=== PATIENT | female | born 1985 | race American Indian/Alaskan Native ===

== ENCOUNTER 2019-11-30 13:32 | Emergency (ER) | payer SELFPAY ==
[2019-11-30] MEDS ORDERED: ASPIRIN 325 MG TAB PO ONE (13:53)
--- NOTE | 2019-11-30 13:55 | Emergency Department Report ---
ED Neuro Deficit HPI - General Chief Complaint: Altered Mental Status Stated Complaint: CODE STROKE Time Seen by Provider: 11/30/19 13:33 - History of Present Illness Initial Comments: [facility]urology [facility] Date of Service: 11/30/2019 13:14:43 Impression: Rule Out Acute Ischemic Stroke AMS versus aphasia not clear Comments/Sign-Out: THe patient developed AMS about 30 min prior to arrival that has improved. She felt like she couldn't get her words out however suspect more AMS per families description but cannot exclude tia. Ddx AMS/toxic metabolic/seizure, tia. Would start aspirin for now get toxic metabolic workup. Consider stroke/seizure workup if no obvious cause for her altered mentation found. Metrics: Last Known Well: 11/30/2019 13:00:00 [employer] Notification Time: 11/30/2019 13:13:16 Arrival Time: 11/30/2019 13:32:00 Stamp Time: 11/30/2019 13:14:43 Time First Login Attempt: 11/30/2019 13:20:24 Video Start Time: 11/30/2019 13:20:24 Symptoms: AMS NIHSS Start Assessment Time: 11/30/2019 13:45:00 Patient is not a candidate for tPA. Patient was not deemed candidate for tPA thrombolytics because of Resolved symptoms (no residual disabling symptoms). Video End Time: 11/30/2019 13:54:12 CT head showed no acute hemorrhage or acute core infarct. Clinical Presentation is not Suggestive of Large Vessel Occlusive Disease Radiologist was not called back for review of advanced imaging because na ED Physician notified of diagnostic impression and management plan on 11/30/2019 13:54:13 Our recommendations are outlined below. Recommendations: Activate Stroke Protocol Admission/Order Set Stroke/Telemetry Floor Neuro Checks Bedside Swallow Eval DVT Prophylaxis IV Fluids, Normal Saline Head of Bed 30 Degrees Euglycemia and Avoid Hyperthermia (PRN Acetaminophen) Initiate Aspirin 325 MG Daily Routine Consultation with Inhouse Neurology for Follow up Care Sign Out: Discussed with Emergency Department Provider History of Present Illness: Patient is a 33 year old Female. Patient was brought by EMS for symptoms of AMS She was on the phone then became disoriented never happened before has DM, HTN, ESRD, BG 175, BP 179/107. Her family say they asked her some questions and she gave inappropriate confused answers but she was able to speak not really making word errors. The patient her self says she felt she couldnt get her words out no other weakness numbness or tingling. No VITAL or CP. Feels better now Examination: 1A: Level of Consciousness - Alert; keenly responsive + 0 1B: Ask Month and Age - Both Questions Right + 0 1C: Blink Eyes & Squeeze Hands - Performs Both Tasks + 0 2: Test Horizontal Extraocular Movements - Normal + 0 3: Test Visual Ruiz - No Visual Loss + 0 4: Test Facial Palsy (Use Grimace if Obtunded) - Normal symmetry + 0 5A: Test Left Arm Motor Drift - No Drift for 10 Seconds + 0 5B: Test Right Arm Motor Drift - No Drift for 10 Seconds + 0 6A: Test Left Leg Motor Drift - No Drift for 5 Seconds + 0 6B: Test Right Leg Motor Drift - No Drift for 5 Seconds + 0 7: Test Limb Ataxia (FNF/Heel-Tatum) - No Ataxia + 0 8: Test Sensation - Normal; No sensory loss + 0 9: Test Language/Aphasia - Normal; No aphasia + 0 10: Test Dysarthria - Normal + 0 11: Test Extinction/Inattention - No abnormality + 0 NIHSS Score: 0 Patient/Family was informed the Neurology Consult would happen via TeleHealth consult by way of interactive audio and video telecommunications and consented to receiving care in this manner. Due to the immediate potential for life-threatening deterioration due to underlying acute neurologic illness, I spent 35 minutes providing critical care. This time includes time for face to face visit via telemedicine, review of medical records, imaging studies and discussion of findings with providers, the patient and/or family. Dr Olive Lopez [facility] - Related Data Allergies/Adverse Reactions: Allergies Allergy/AdvReac Type Severity Reaction Status Date / Time ciprofloxacin [From Cipro] Allergy Hives Verified 11/30/19 13:35 ED Review of Systems ROS: Stated complaint: CODE STROKE Other details as noted in HPI ED Neuro Physical Exam - General Suspected Stroke: No Critical care attestation.: If time is entered above; I have spent that time in minutes in the direct care of this critically ill patient, excluding procedure time. ED Disposition Clinical Impression: Altered mental status Qualifiers: Altered mental status type: disorientation Qualified Code(s): R41.0 - Disorientation, unspecified Disposition: DC-09 OP ADMIT IP TO THIS HOSP Is pt being admited?: Yes Condition: Stable
--- NOTE | 2019-11-30 14:04 | Cat Scan Report ---
CT head/brain wo con INDICATION / CLINICAL INFORMATION: 33 years Female; MAIN: CODE STROKEneuro deficits <6hrs or sx present upon awakening UNABLE TO REMOVE EARRINGS #[id number]. Temporary aphasia TECHNIQUE: Routine CT head without contrast. All CT scans at this location are performed using CT dos e reduction for ALARA by means of automated exposure control. COMPARISON: None. FINDINGS: BRAIN / INTRACRANIAL CONTENTS: No acute hemorrhage, mass effect, midline shift, hydrocephalus, or acu te, large territorial infarct. No chronic infarct or atrophy appreciated. There may be minimal, nonsp ecific white matter disease present. CRANIOCERVICAL JUNCTION: No significant abnormality. ORBITS: There is a focal dehiscence of the lamina papyracea on the right which may be related to prio r trauma or could be congenital. This finding should be of no clinical significance. SINUSES / MASTOIDS: Very small air-fluid level seen in the right maxillary antrum, along with mild mu cosal thickening. There may be minimal mucosal thickening in the mastoids on the right. ADDITIONAL FINDINGS: None. IMPRESSION: 1. No focal mass, hemorrhage, hydrocephalus, or acute, large territorial infarct. This exam was performed as part of a code stroke protocol. The exam was completed on 11/30/2019 12:50 PM, Central time. The exam was reviewed at 12:[address] Carrillo was notified at 12:58 PM. Signer Name: Jeffrey Humphrey MD, III Signed: 11/30/2019 2:00 PM Workstation Name: [email or web address]
--- NOTE | 2019-11-30 14:08 | Emergency Department Report ---
ED Neuro Deficit HPI - General Chief Complaint: Altered Mental Status Stated Complaint: CODE STROKE Time Seen by Provider: 11/30/19 13:33 - History of Present Illness Initial Comments: Patient is a 33-year-old F [place] female with a past medical history of hypertension who had an episode where she was having trouble speaking a pproximately 30 minutes prior to arrival. Patient states she was on the phone with a friend and her friend kept asking her to repeat which she said because it was not making sense. Patient states she feels as though she knew what she wanted to say but it was not coming out correctly. This lasted for approximately 30 minutes paramedics were called. They stated that on their arrival she was ANO x2 however by the time she got to the hospital she is ANO x3 and have returned back to her baseline. There is no complaints of slurred speech or weakness to the arms or legs. Patient denies any medication changes nausea vomiting diarrhea fevers chills cough cold or congestion. - Related Data Home Medications: Previous Rx's Medication Instructions Recorded Last Taken Type NIFEdipine [Nifedipine ER] 90 mg PO DAILY #30 tablet.er 11/30/19 Unknown Rx Allergies/Adverse Reactions: Allergies Allergy/AdvReac Type Severity Reaction Status Date / Time ciprofloxacin [From Cipro] Allergy Hives Verified 11/30/19 13:35 ED Review of Systems ROS: Stated complaint: CODE STROKE Other details as noted in HPI Comment: All other systems reviewed and negative ED Past Medical Hx - Medications Home Medications: Home Medications Medication Instructions Recorded Confirmed Last Taken Type NIFEdipine [Nifedipine ER] 90 mg PO DAILY #30 tablet.er 11/30/19 Unknown Rx ED Neuro Physical Exam - General General appearance: alert, in no apparent distress Suspected Stroke: No - Head Head exam: Present: atraumatic, normocephalic - Eye Eye exam: Present: normal appearance - ENT ENT exam: Present: mucous membranes moist - Neck Neck exam: Present: normal inspection - Respiratory Respiratory exam: Present: normal lung sounds bilaterally. Absent: respiratory distress, wheezes, rales - Cardiovascular Cardiovascular Exam: Present: regular rate, normal rhythm, normal heart sounds. Absent: systolic murmur, diastolic murmur, rubs, gallop - GI/Abdominal GI/Abdominal exam: Present: soft, normal bowel sounds. Absent: distended, tenderness, guarding, rebound - Extremities Exam Extremities exam: Present: normal inspection - Back Exam Back exam: Present: normal inspection - Neurological Exam Neurological exam: Present: alert, oriented X3 - NIHSS Assessment Interval: Baseline 1a. Level of Consciousness: alert/keenly responsive 1b. LOC Questions: answers both correctly 1c. LOC Commands: performs tasks correctly 2. Best Gaze: normal 3. Visual: no visual loss 4. Facial Palsy: normal symmetrical movement 5b. Motor Arm Right: no drift 5a. Motor Arm Left: no drift 6a. Motor Leg Left: no drift 6b. Motor Leg Right: no drift 7. Limb Ataxia: absent 8. Sensory: normal 9. Best Language: no aphasia 10. Dysarthria: normal 11. Extinction/Inattention: no abnormality Total Score: 0 Stroke Severity: No Stroke Symptoms - Psychiatric Psychiatric exam: Present: normal affect, normal mood - Skin Skin exam: Present: warm, dry, intact, normal color. Absent: rash - Other Other exam information: Examination: 1A: Level of Consciousness - Alert; keenly responsive + 0 1B: Ask Month and Age - Both Questions Right + 0 1C: Blink Eyes & Squeeze Hands - Performs Both Tasks + 0 2: Test Horizontal Extraocular Movements - Normal + 0 3: Test Visual Ruiz - No Visual Loss + 0 4: Test Facial Palsy (Use Grimace if Obtunded) - Normal symmetry + 0 5A: Test Left Arm Motor Drift - No Drift for 10 Seconds + 0 5B: Test Right Arm Motor Drift - No Drift for 10 Seconds + 0 6A: Test Left Leg Motor Drift - No Drift for 5 Seconds + 0 6B: Test Right Leg Motor Drift - No Drift for 5 Seconds + 0 7: Test Limb Ataxia (FNF/Heel-Tatum) - No Ataxia + 0 8: Test Sensation - Normal; No sensory loss + 0 9: Test Language/Aphasia - Normal; No aphasia + 0 10: Test Dysarthria - Normal + 0 11: Test Extinction/Inattention - No abnormality + 0 NIHSS Score: 0 ED Course Vital Signs 11/30/19 11/30/19 14:00 17:21 Respiratory 16 Rate Blood Pressure 180/104 O2 Sat by Pulse 93 Oximetry - Lab Data Result diagrams: 11/30/19 14:26 11/30/19 14:26 Lab Results 11/30/19 11/30/19 11/30/19 Range/Units 14:26 14:26 14:26 WBC 8.5 (4.5-11.0) K/mm3 RBC 3.41 L (3.65-5.03) M/mm3 Hgb 10.2 (10.1-14.3) gm/dl Hct 31.5 (30.3-42.9) % MCV 92 (79-97) fl MCH 30 (28-32) pg MCHC 32 (30-34) % RDW 17.0 H (13.2-15.2) % Plt Count 290 (140-440) K/mm3 Lymph % (Auto) 19.6 (13.4-35.0) % [place] % (Auto) 4.7 (0.0-7.3) % Eos % (Auto) 1.6 (0.0-4.3) % Baso % (Auto) 0.3 (0.0-1.8) % Lymph # 1.7 (1.2-5.4) K/mm3 Marinette # 0.4 (0.0-0.8) K/mm3 Eos # 0.1 (0.0-0.4) K/mm3 Baso # 0.0 (0.0-0.1) K/mm3 Seg Neutrophils % 73.8 H (40.0-70.0) % Seg Neutrophils # 6.3 (1.8-7.7) K/mm3 PT 14.1 (12.2-14.9) Sec. INR 1.08 (0.87-1.13) APTT 27.0 (24.2-36.6) Sec. Thrombin Time 15.0 L (15.1-19.6) Sec. Sodium 138 (137-145) mmol/L Potassium 4.5 (3.6-5.0) mmol/L Chloride 99.6 (98-107) mmol/L Carbon Dioxide 21 L (22-30) mmol/L Anion Gap 22 mmol/L BUN 58 H (7-17) mg/dL Creatinine 6.4 H (0.7-1.2) mg/dL Estimated GFR 9 ml/min BUN/Creatinine Ratio 9 % Glucose 175 H (65-100) mg/dL Calcium 7.6 L (8.4-10.2) mg/dL Total Creatine Kinase 256 H (30-135) units/L CK-MB (CK-2) 3.0 (0.0-4.0) ng/mL CK-MB (CK-2) Rel Index 1.1 (0-4) Troponin T 0.126 H* (0.00-0.029) ng/mL Triglycerides 88 (2-149) mg/dL Cholesterol 138 (50-199) mg/dL LDL Cholesterol Direct 79 (50-130) mg/dL HDL Cholesterol 57 (40-59) mg/dL Cholesterol/HDL Ratio 2.42 % Plasma/Serum Alcohol (0-0.07) % / Range/Units 14:26 WBC (4.5-11.0) K/mm3 RBC (3.65-5.03) M/mm3 Hgb (10.1-14.3) gm/dl Hct (30.3-42.9) % MCV (79-97) fl MCH (28-32) pg MCHC (30-34) % RDW (13.2-15.2) % Plt Count (140-440) K/mm3 Lymph % (Auto) (13.4-35.0) % Marinette % (Auto) (0.0-7.3) % Eos % (Auto) (0.0-4.3) % Baso % (Auto) (0.0-1.8) % Lymph # (1.2-5.4) K/mm3 Marinette # (0.0-0.8) K/mm3 Eos # (0.0-0.4) K/mm3 Baso # (0.0-0.1) K/mm3 Seg Neutrophils % (40.0-70.0) % Seg Neutrophils # (1.8-7.7) K/mm3 PT (12.2-14.9) Sec. INR (0.87-1.13) APTT (24.2-36.6) Sec. Thrombin Time (15.1-19.6) Sec. Sodium (137-145) mmol/L Potassium (3.6-5.0) mmol/L Chloride (98-107) mmol/L Carbon Dioxide (22-30) mmol/L Anion Gap mmol/L BUN (7-17) mg/dL Creatinine (0.7-1.2) mg/dL Estimated GFR ml/min BUN/Creatinine Ratio % Glucose (65-100) mg/dL Calcium (8.4-10.2) mg/dL Total Creatine Kinase (30-135) units/L CK-MB (CK-2) (0.0-4.0) ng/mL CK-MB (CK-2) Rel Index (0-4) Troponin T (0.00-0.029) ng/mL Triglycerides (2-149) mg/dL Cholesterol (50-199) mg/dL LDL Cholesterol Direct (50-130) mg/dL HDL Cholesterol (40-59) mg/dL Cholesterol/HDL Ratio % Plasma/Serum Alcohol < 0.01 (0-0.07) % - EKG Data -: EKG Interpreted by Me EKG shows normal: sinus rhythm, axis, intervals, QRS complexes, ST-T waves Rate: tachycardia - Radiology Data [facility] [address] [place] [address] Cat Scan Report Signed Patient: FABIANA MOISE MR#: [id number] : 1985 Acct:[id number] Age/Sex: 33 / F ADM Date: 11/30/19 Loc: ED Attending Dr: Ordering Physician: DONTA CARRILLO MD Date of Service: 11/30/19 Procedure(s): CT head/brain wo con Accession Number(s): [id number] cc: DONTA CARRILLO MD CT head/brain wo con INDICATION / CLINICAL INFORMATION: 33 years Female; MAIN: CODE STROKEneuro deficits <6hrs or sx present upon awakening UNABLE TO REMOVE EARRINGS #[id number]. Temporary aphasia TECHNIQUE: Routine CT head without contrast. All CT scans at this location are performed using CT dose reduction for ALARA by means of automated exposure control. COMPARISON: None. FINDINGS: BRAIN / INTRACRANIAL CONTENTS: No acute hemorrhage, mass effect, midline shift, hydrocephalus, or acute, large territorial infarct. No chronic infarct or atrophy appreciated. There may be minimal, nonspecific white matter disease present. CRANIOCERVICAL JUNCTION: No significant abnormality. ORBITS: There is a focal dehiscence of the lamina papyracea on the right which may be related to prior trauma or could be congenital. This finding should be of no clinical significance. SINUSES / MASTOIDS: Very small air-fluid level seen in the right maxillary antrum, along with mild mucosal thickening. There may be minimal mucosal thickening in the mastoids on the right. ADDITIONAL FINDINGS: None. IMPRESSION: 1. No focal mass, hemorrhage, hydrocephalus, or acute, large territorial infarct. This exam was performed as part of a code stroke protocol. The exam was completed on 11/30/2019 12:50 PM, Central time. The exam was reviewed at 12:[address] Carrillo was notified at 12:58 PM. Signer Name: Jeffrey Humphrey MD, III Signed: 11/30/2019 2:00 PM Workstation Name: [id number] - Medical Decision Making Patient have returned to baseline on her arrival. She is a 33-year-old F [place] female with history of hypertension and after labs came back she stated that she does have a history of's of some renal insufficiency and her last appointment with her fingerprint classifier was 2 weeks ago he was to call her with maría mccain but has not yet. Patient states that she has seen to be evaluated for possible AV graft therefore it appears as though the patient is close to being on dialysis. This is consistent with the patient's laboratory studies today. She does still make urine and she has no evidence of any fluid overload. Regarding the patient's confusion earlier today the our neurologist has seen the patient and believes that her symptoms were more metabolic. Patient's blood pressure is elevated and she was given labetalol here in emergency department. Patient will be discharged home refill of from the feta female has been given an the patient will follow with her fingerprint classifier. Critical care attestation.: If time is entered above; I have spent that time in minutes in the direct care of this critically ill patient, excluding procedure time. ED Disposition Clinical Impression: Hypertensive urgency, Chronic renal failure Altered mental status Qualifiers: Altered mental status type: disorientation Qualified Code(s): R41.0 - Disorientation, unspecified Disposition: DC-09 OP ADMIT IP TO THIS HOSP Is pt being admited?: No Does the pt Need Aspirin: No Condition: Stable Instructions: Hypertension (ED), Chronic Kidney Disease (ED) Additional Instructions: Your BUN and creatinine was 58 and 6.4 respectively. Your GFR is 9. Please call your fingerprint classifier to tell them of your lab results. Prescriptions: NIFEdipine [Nifedipine ER] 90 mg PO DAILY #30 tablet.er Referrals: PRIMARY CARE, [Primary Care Provider] - 3-5 Days Time of Disposition: 18:23
[2019-11-30] MEDS ORDERED: ONDANSETRON 4 MG/2 ML INJ IV ONE (15:14)
[2019-11-30 15:52] LABS: Basophils % (Auto) 0.3 % (0.0-1.8); Eosinophils # (Auto) 0.1 K/mm3 (0.0-0.4); Eosinophils % (Auto) 1.6 % (0.0-4.3); Hematocrit 31.5 % (30.3-42.9); Hemoglobin 10.2 gm/dl (10.1-14.3); Lymphocytes # (Auto) 1.7 K/mm3 (1.2-5.4); Lymphocytes % (Auto) 19.6 % (13.4-35.0); Mean Corpuscular HGB Conc 32 % (30-34); Mean Corpuscular Volume 92 fl (79-97); Monocytes # (Auto) 0.4 K/mm3 (0.0-0.8); Monocytes % (Auto) 4.7 % (0.0-7.3); Platelet Count 290 K/mm3 (140-440); Red Blood Count 3.41 M/mm3 (3.65-5.03)
[2019-11-30 16:00] LABS: Calcium 7.6 mg/dL (8.4-10.2)
[2019-11-30 16:02] LABS: INR 1.08 (0.87-1.13)
[2019-11-30 16:41] LABS: Chol/HDL Ratio 2.42 %
[2019-11-30 18:27] VITALS: BP 170/102
== END 2019-11-30 20:07 | disposition admitted as inpatient to this hospital (09) ==
LOC: ED 13:32
DX: R41.82 Altered mental status, unspecified (principal); I16.0 Hypertensive urgency
CPT/HCPCS: 36415; 70450; 80048; 80061; 82550; 82553; 84484; 85025; 85610; 85670; 85730; 93005; 96374; 96375; 99285; J2405; 80320; G0480

== ENCOUNTER 2020-08-13 06:29 | Day surgery (SDC) | payer MEDICARE ==
[2020-08-13] MEDS ORDERED: SODIUM CHLORIDE 0.9% 1000 ML 1,000 ML ONE (07:42)
[2020-08-13] MEDS ORDERED: MIDAZOLAM 2 MG/2 ML INJ ONE (08:26)
[2020-08-13] MEDS ORDERED: ceFAZolin/Water 2 GM/20 ML 2 GM/20 ML SYRINGE IV ONE (08:27)
[2020-08-13] MEDS ORDERED: INSULIN REGULAR, HUMAN 100 UNITS/1 ML ONE (08:27)
[2020-08-13] MEDS ORDERED: INSULIN REGULAR, HUMAN 100 UNITS/1 ML SUB-Q SCH (08:35)
[2020-08-13] MEDS ORDERED: MIDAZOLAM 2 MG/2 ML INJ IV ONE (10:06)
[2020-08-13] MEDS ORDERED: SODIUM CHLORIDE 0.9% 1000 ML 1,000 ML IV SCH (10:15)
[2020-08-13] MEDS ORDERED: ceFAZolin/STERILE WATER 2 GM/20 ML SYRINGE IV NR (10:20)
[2020-08-13 10:30] LABS: Hematocrit 26.8 % (30.3-42.9); Hemoglobin 8.6 gm/dl (10.1-14.3); Mean Corpuscular HGB Conc 32 % (30-34); Mean Corpuscular Volume 99 fl (79-97); Platelet Count 252 K/mm3 (140-440); Red Blood Count 2.71 M/mm3 (3.65-5.03); Red Cell Distribution Width 16.7 % (13.2-15.2)
[2020-08-13 10:53] LABS: Calcium 8.9 mg/dL (8.4-10.2)
[2020-08-13] MEDS ORDERED: propofoL 200 MG/20 ML VIAL IV ONE (11:02)
[2020-08-13] MEDS ORDERED: fentaNYL 100 MCG/2 ML INJ ONE (11:14)
[2020-08-13] MEDS ORDERED: HEPARIN 10,000 UNITS/10 ML VIAL IV ONE (11:51)
[2020-08-13] MEDS ORDERED: SODIUM CHLORIDE 0.9% 250 ML IVPB IV ONE (11:52)
[2020-08-13] MEDS ORDERED: GELATIN SPONGE 12 X 7 TP ONE (11:53)
[2020-08-13] MEDS ORDERED: THROMBIN (RECOMBINANT) 5,000 UNIT VIAL TP ONE (11:54)
[2020-08-13] MEDS ORDERED: ONDANSETRON 4 MG/2 ML INJ ONE (13:27)
--- NOTE | 2020-08-13 13:34 | Post Operative Note ---
Date of procedure: 08/13/20 Pre-op diagnosis: ESRD Post-op diagnosis: same Procedure: Left Arm Axillary Loop AV Graft Insertion Anesthesia: GETA Surgeon: RADHIKA BARRIENTOS Estimated blood loss: other (25ml) Pathology: none Condition: stable Disposition: PACU
--- NOTE | 2020-08-13 13:35 | Short Stay Summary ---
Short Stay Documentation Date of service: 08/13/20 - History H&P: obtained from office Past Medical History: ESRD, hypertension - Allergies and Medications Current Medications: Allergies ciprofloxacin [From Cipro] Allergy (Verified 08/13/20 09:12) Hives Home Medications Medication Instructions Recorded Confirmed Last Taken Type NIFEdipine [Nifedipine ER] 90 mg PO DAILY #30 tablet.er 11/30/19 08/13/20 08/12/20 Rx Furosemide [Lasix] 40 mg PO 3XW 08/13/20 08/13/20 08/12/20 History Losartan [Cozaar] 50 mg PO QDAY 08/13/20 08/13/20 08/12/20 History Active Medications Cefazolin Sodium (Cefazolin/Sterile Water 2 Gm/20 Ml Syringe) 2 gm IV PREOP NR Stop: 08/13/20 20:00 Sodium Chloride (Nacl 0.9% 1000 Ml) 1,000 mls @ 42 mls/hr IV DIRECT RUCHI Last Admin: 08/13/20 07:55 Dose: 42 mls/hr Documented by: - Physical exam General appearance: no acute distress Lungs: Normal air movement Heart: Regular rate Extremities: no ischemia - Hospital course Hospital course: the patient was taken to the operating room and had a left arm av graft insertion performed. please refer to the operative note concerning details of the procedure. the patient tolerated the procedure well and was discharged home in stable condition. - Disposition Condition at discharge: Stable Disposition: DC-01 TO HOME OR SELFCARE Short Stay Discharge Plan Follow up with: PRIMARY CARE, [Primary Care Provider] - 7 Days Forms: Outpatient Surgery [facility]
[2020-08-13] MEDS ORDERED: oxyCODONE /ACETAMINOPHEN 5-325MG TAB PO PRN (14:00)
[2020-08-13] MEDS ORDERED: oxyCODONE /ACETAMINOPHEN 5-325MG TAB ONE (14:05)
--- NOTE | 2020-08-13 14:24 | Operative Report ---
STAFF SURGEON: Dr. Tomas Echeverria. PREOPERATIVE DIAGNOSIS: End-stage renal disease. POSTOPERATIVE DIAGNOSIS: End-stage renal disease. PROCEDURE PERFORMED: Left arm axillary loop AV graft insertion. COMPLICATIONS: None. ESTIMATED BLOOD LOSS: 25 mL. ANESTHESIA: General. SURGICAL FINDINGS: The brachial artery at the level of the antecubital fossa was found to be diminutive in size and not suitable for arterial inflow. INDICATIONS FOR PROCEDURE: This is a 34-year-old female with end-stage renal disease, on hemodialysis via left IJ PermCath who is in need of upper extremity access. The patient did not have any suitable veins for AV fistula creation and, therefore, was slated to undergo AV graft insertion. The patient was explained the risks, benefits and alternatives of procedure, expressed understanding and wished to proceed. DESCRIPTION OF PROCEDURE: After appropriate consent was obtained, the patient was brought back to the operating room and placed on the operating table in supine position with left arm extended. The patient was given appropriate medication for general anesthesia, had LMA placed without difficulty. The patient was given appropriate medication for appropriate preoperative antibiotics. Appropriate timeout was performed indicating correct patient, procedure, and site of procedure. After the left arm was appropriately prepped and draped, we then proceeded to begin the operation by making a longitudinal incision near the antecubital fossa. This was carried through the subcutaneous tissues with combination of blunt dissection and electrocautery. Dissection was continued through the bicipital aponeurosis, which allowed us to expose the brachial artery at this level. On exposure, the brachial artery was found to be very small in size and not suitable for arterial inflow. We then turned our attention towards the axilla and made a transverse incision. We then continued through the subcutaneous tissue with a combination of blunt dissection and electrocautery. We then entered through the fascia overlying the axillary neurovascular bundle. Axillary artery at this level was identified and found to be suitable for arterial inflow, so this was mobilized for appropriate distance both proximally and distally. We then proceeded to expose the axillary vein, which was found to be suitable for venous outflow. This was mobilized for appropriate distance both proximally and distally. We then proceeded to create a subcutaneous tunnel in a looped fashion bringing through a 4-7 mm graft with arterial end on the thumb side. The patient was given 5000 units of unfractionated heparin after appropriate timeout elapsed. Vascular clamps were placed on the axillary artery, both proximally and distally. Longitudinal arteriotomy was made with an 11 blade and extended with Starr scissors. An end-to-side anastomosis was performed at the spatulation of the graft using a running 6-0 Prolene suture. Once complete, flow was established through the graft, had a nice pulsatile flow. The graft was cut to an appropriate length, spatulated. Vascular clamps were placed on the axillary vein, both proximally and distally. Longitudinal venotomy was performed with the 11 blade and extended with Starr scissors. Then, an end-to-side anastomosis was performed with a running 5-0 Prolene suture. Once complete, flow was established through the graft, had a nice palpable thrill. We then proceeded to obtain hemostasis along the suture line, which was obtained with hemostatic agents. Once we were satisfied with hemostasis, we then proceeded to close both wounds with a deep subcutaneous layer with interrupted 3-0 PDS and then the skin was approximated with henry. Appropriate dressing was placed. The patient tolerated the procedure well, emerged from the general anesthesia, the LMA removed, and was sent to recovery in stable condition. All sponge, instrument, and needle counts were correct at completion of the operation. JOB# [id number] LEE/JOSEPH
[2020-08-13] MEDS ORDERED: HEPARIN 10,000 UNIT/1 ML VIAL IV ONE (15:22)
--- NOTE | 2020-08-13 16:09 | Post Anesthesia Evaluation ---
- Post Anesthesia Evaluation Patient Participated: Yes Airway Patent: Yes Stable Respiratory Function: Yes Nausea/Vomiting: No Temp > 96.8F: Yes Pain Manageable: Yes Adequeate Hydration: Yes Anesthesia Complications: No Block Receding Appropriately: Not Applicable Patient on Ventilator: No Other Comments: Preop evaluation done under different account number/visit
[2020-08-13 16:25] VITALS: BP 139/74
== END 2020-08-13 06:30 | disposition home or self-care (01) ==
LOC: OR 06:29
PROVIDERS: ATTEND Surgery Vascular Surgery
DX: I12.0 Hypertensive chronic kidney disease with stage 5 chronic kidney disease or end stage renal disease (principal); E11.22 Type 2 diabetes mellitus with diabetic chronic kidney disease; N18.6 End stage renal disease; K21.9 Gastro-esophageal reflux disease without esophagitis; Z98.890 Other specified postprocedural states; Z88.8 Allergy status to other drugs, medicaments and biological substances; Z79.899 Other long term (current) drug therapy
CPT/HCPCS: 36415; 36830; 80048; 81025; 82962; 85027; A4649; C1768; J0690; J1644; J2250; J2405; J2704; J3010; J7030; J7050; J1815

== ENCOUNTER 2020-09-17 10:45 | Day surgery (SDC) | payer MEDICARE ==
[~2020-09-17 10:45] MED LIST: MIDAZOLAM 2 MG/2 ML INJ IV NR; SODIUM CHLORIDE 0.9% 1000 ML 1,000 ML IV SCH
[2020-09-17] MEDS ORDERED: ONDANSETRON 4 MG/2 ML INJ IV PRN (11:24)
[2020-09-17] MEDS ORDERED: fentaNYL 100 MCG/2 ML INJ IV PRN (11:24)
--- NOTE | 2020-09-17 11:24 | Anesthesia Consultation ---
Anesthesia Consult and Med Hx Date of service: 09/17/20 - Airway Anesthetic Teeth Evaluation: Good ROM Head & Neck: Adequate Mental/Hyoid Distance: Adequate Mallampati Class: Class III Intubation Access Assessment: Possibly Difficult - Pre-Operative Health Status ASA Pre-Surgery Classification: ASA3 Proposed Anesthetic Plan: General - Pulmonary Hx Smoking: No Hx Respiratory Symptoms: No Hx Pneumonia: No (asymptomatic COVID infection 02/2020) - Cardiovascular System Hx Hypertension: Yes (took nifedipine, losartan this morning) Hx Heart Attack/AMI: No Hx Cardia Arrhythmia: No - Central Nervous System CVA: No - Endocrine Hx End Stage Renal Disease: Yes (last HD 09/16/20) Hx Liver Disease: No Hx Non-Insulin Dependent Diabetes: Yes (diet controlled) Hx Thyroid Disease: No - Hematic Hx Anemia: Yes - Other Systems Hx Obesity: Yes (BMI 40) - Additional Comments Anesthesia Medical History Comments: No hx anesthetic complications. Requests GA.
--- NOTE | 2020-09-17 11:24 | Anesthesia Day of Surgery ---
Anesthesia Day of Surgery - Day of Surgery Patient Examined: Yes Patient H&P Reviewed: Yes Patient is NPO: Yes
[2020-09-17] MEDS ORDERED: INSULIN REGULAR, HUMAN 100 UNITS/1 ML IV ONE (11:52)
[2020-09-17] MEDS ORDERED: HEPARIN 10,000 UNITS/10 ML VIAL ONE (12:06)
[2020-09-17] MEDS ORDERED: SODIUM CHLORIDE 0.9% 250ML 250 ML ONE (12:07)
[2020-09-17] MEDS ORDERED: THROMBIN (RECOMBINANT) 5,000 UNIT VIAL TP ONE ×3 (12:07→13:57)
[2020-09-17] MEDS ORDERED: PROTAMINE SULFATE 50 MG/5 ML INJ ONE (12:07)
[2020-09-17] MEDS ORDERED: LIDOCAINE (1%) 10 MG/1 ML VIAL 20 ML MDV ONE (12:07)
[2020-09-17] MEDS ORDERED: GELATIN SPONGE SIZE 100 TP ONE (12:07)
[2020-09-17] MEDS ORDERED: ONDANSETRON 4 MG/2 ML INJ ONE (12:29)
[2020-09-17] MEDS ORDERED: LIDOCAINE MPF (2%) 20 MG/1 ML VIAL 5 ML ONE (12:29)
[2020-09-17] MEDS ORDERED: dexAMETHasone 20 MG/5 ML VIAL ONE (12:29)
[2020-09-17] MEDS ORDERED: HYDROmorphone 1 MG/1 ML INJ ONE (12:29)
[2020-09-17 12:30] LABS: Calcium 9.3 mg/dL (8.4-10.2)
[2020-09-17] MEDS ORDERED: propofoL 200 MG/20 ML VIAL IV ONE ×2 (12:30→13:08)
[2020-09-17 12:32] LABS: Hematocrit 31.9 % (30.3-42.9); Hemoglobin 10.5 gm/dl (10.1-14.3); Mean Corpuscular HGB Conc 33 % (30-34); Mean Corpuscular Volume 101 fl (79-97); Platelet Count 256 K/mm3 (140-440); Red Blood Count 3.17 M/mm3 (3.65-5.03)
[2020-09-17] MEDS ORDERED: SODIUM CHLORIDE 0.9% 250 ML IVPB IV ONE ×2 (12:39→13:57)
[2020-09-17] MEDS ORDERED: HEPARIN 10,000 UNITS/10 ML VIAL IV ONE ×2 (12:40→13:57)
[2020-09-17] MEDS ORDERED: GELATIN SPONGE 12 X 7 TP ONE ×2 (12:41→13:57)
[2020-09-17] MEDS ORDERED: SODIUM CHLORIDE 0.9% IRR 1,500 ML BOTTLE IR ONE ×2 (12:42→13:57)
[2020-09-17] MEDS ORDERED: ceFAZolin/STERILE WATER 2 GM/20 ML SYRINGE IV NR (13:00)
--- NOTE | 2020-09-17 15:56 | Post Operative Note ---
Date of procedure: 09/17/20 Pre-op diagnosis: ESRD Post-op diagnosis: same Procedure: Left Arm Axillary Loop AV Graft Insertion Anesthesia: GETA Surgeon: RADHIKA BARRIENTOS Estimated blood loss: other (25ml) Pathology: none Condition: stable Disposition: PACU
[2020-09-17] MEDS ORDERED: oxyCODONE /ACETAMINOPHEN 5-325MG TAB PO PRN (15:59)
--- NOTE | 2020-09-17 15:59 | Short Stay Summary ---
Short Stay Documentation Date of service: 09/17/20 - History H&P: obtained from office Past Medical History: hypertension - Allergies and Medications Current Medications: Allergies ciprofloxacin [From Cipro] Allergy (Verified 08/13/20 09:12) Hives Home Medications Medication Instructions Recorded Confirmed Last Taken Type NIFEdipine [Nifedipine ER] 90 mg PO DAILY #30 tablet.er 11/30/19 09/17/20 03/0 11/04 08:00 Rx Furosemide [Lasix] 40 mg PO 4XW 08/13/20 09/17/20 09/15/20 History Losartan [Cozaar] 50 mg PO QDAY 08/13/20 09/17/20 09/17/20 08:00 History Aspirin 81 mg PO DAILY 09/14/20 09/17/20 09/15/20 History Active Medications Cefazolin Sodium (Cefazolin/Sterile Water 2 Gm/20 Ml Syringe) 2 gm IV PREOP NR Stop: 09/17/20 23:59 Fentanyl (Fentanyl 100 Mcg/2 Ml Inj) 50 mcg IV Q5MIN PRN PRN Reason: Pain , Severe (7-10) Stop: 09/17/20 23:00 Sodium Chloride (Nacl 0.9% 1000 Ml) 1,000 mls @ 42 mls/hr IV DIRECT RUCHI Stop: 09/17/20 23:59 Last Admin: 09/17/20 11:50 Dose: 42 mls/hr Documented by: Midazolam HCl (Midazolam 2 Mg/2 Ml Inj) 2 mg IV PREOP NR Stop: 09/17/20 21:00 Last Admin: 09/17/20 12:40 Dose: 2 mg Documented by: - Physical exam General appearance: no acute distress Lungs: Normal air movement Heart: Regular rate Extremities: no ischemia - Hospital course Hospital course: the patient was taken to the operating room and had a left arm av graft insertion performed. please refer to the operative note concerning details of the procedure. the patient tolerated the procedure well and was discharged home in stable condition. - Disposition Condition at discharge: Stable Disposition: [id number] TO HOME OR SELFCARE Short Stay Discharge Plan Follow up with: PRIMARY CARE, [Primary Care Provider] - 7 Days
[2020-09-17] MEDS ORDERED: PHENYLEPHRINE/NS 1,000 MCG/10 ML SYRINGE (OR USE) IV ONE (16:07)
--- NOTE | 2020-09-17 16:41 | Operative Report ---
STAFF SURGEON: Dr. Tomas Echeverria. PREOPERATIVE DIAGNOSIS: End-stage renal disease. POSTOPERATIVE DIAGNOSIS: End-stage renal disease. PROCEDURE PERFORMED: Left arm axillary loop AV graft insertion. COMPLICATIONS: None. ESTIMATED BLOOD LOSS: 25 mL. ANESTHESIA: General. INDICATIONS FOR PROCEDURE: This is a 34-year-old female with end-stage renal disease, on hemodialysis via left IJ PermCath, who is in need of a dialysis access in the upper extremities. The patient had a previous graft that was placed, that failed, and the patient returned today for subsequent access creation. The patient was explained the risks, benefits, and alternatives of procedure, expressed understanding, and wished to proceed. DESCRIPTION OF PROCEDURE: After appropriate consent was obtained, the patient was brought back to the operating room and placed on the operating table in the supine position with the left arm extended. The patient was given appropriate medication for general anesthesia, had LMA placed without difficulty. The left arm was prepped and draped in the usual sterile fashion with ChloraPrep. Appropriate preoperative antibiotics were administered and appropriate time-out performed indicating correct patient, procedure, and site of the procedure. I then began the operation by making a longitudinal incision in the axilla. This was carried through subcutaneous tissue with a combination of blunt dissection and electrocautery. There was significant amount of scar tissue that was involved in our dissection. This dissection was carried down into the axillary vein and artery, which were both identified and were mobilized for appropriate distance, both proximally and distally. We then proceeded to make a counterincision in the mid upper arm. This was carried through the subcutaneous tissue with a combination of blunt dissection and electrocautery. Then, a subcutaneous tunnel was made, bringing through a 4-7 mm Propaten graft. We then proceeded to administer unfractionated heparin intravenously. After an appropriate time had elapsed, vascular clamps were placed on the axillary artery, both proximally and distally. A longitudinal arteriotomy was made, extended with Starr scissors. Then, an end-to-side anastomosis was performed with a running 6-0 Prolene suture with the arterial anastomosis on the thumb side. We then proceeded to restore flow through the graft. We had a nice pulsatile flow. The graft was then cut to an appropriate length and spatulated. Vascular clamps were then placed on the axillary vein, both proximally and distally. A longitudinal venotomy was performed, extended with Starr scissors, and then an end-to-side anastomosis was performed with a running 5-0 Prolene suture. Once complete, flow was established through the graft, which had a nice palpable thrill. We then looked to obtain hemostasis along our suture line, which was obtained with hemostatic agents. Once we were satisfied with hemostasis, we then proceeded to close both wounds with deep subcutaneous layer with interrupted 3-0 PDS and the skin was approximated with henry. Appropriate dressing was placed. The patient tolerated the procedure well, emerged from the general anesthesia, had LMA removed in the operating room and was sent to recovery in stable condition. All the sponges, instrument and needle counts were correct at completion of the operation. JOB# [id number] LEE/JOSEPH
--- NOTE | 2020-09-17 17:00 | Post Anesthesia Evaluation ---
- Post Anesthesia Evaluation Patient Participated: Yes Airway Patent: Yes Stable Respiratory Function: Yes Nausea/Vomiting: No Temp > 96.8F: Yes Pain Manageable: Yes Adequeate Hydration: Yes Anesthesia Complications: No
[2020-09-17] MEDS ORDERED: HEPARIN 10,000 UNIT/1 ML VIAL IV ONE (17:18)
[2020-09-17 18:56] VITALS: BP 122/62
[2020-09-17] MEDS ORDERED: APIXABAN 2.5 MG TAB PO SCH (22:00)
== END 2020-09-17 10:46 | disposition home or self-care (01) ==
LOC: OR 10:45
PROVIDERS: ATTEND Surgery Vascular Surgery
DX: I12.0 Hypertensive chronic kidney disease with stage 5 chronic kidney disease or end stage renal disease (principal); E11.22 Type 2 diabetes mellitus with diabetic chronic kidney disease; N18.6 End stage renal disease; K21.9 Gastro-esophageal reflux disease without esophagitis; D64.9 Anemia, unspecified; Z87.01 Personal history of pneumonia (recurrent); Z87.440 Personal history of urinary (tract) infections
CPT/HCPCS: 36415; 36830; 80048; 81025; 82962; 85027; A4649; C1768; J0690; J1100; J1170; J1644; J2250; J2370; J2405; J2704; J7030; J7050; J1815; J2720

== ENCOUNTER 2020-12-25 23:52 | Emergency (ER) | payer MEDICARE ==
[2020-12-26 01:56] VITALS: BP 120/80
[2020-12-26 02:33] LABS: Basophils % (Auto) 0.4 % (0.0-1.8); Eosinophils # (Auto) 0.1 K/mm3 (0.0-0.4); Eosinophils % (Auto) 0.7 % (0.0-4.3); Hematocrit 32.1 % (30.3-42.9); Hemoglobin 10.6 gm/dl (10.1-14.3); Lymphocytes # (Auto) 1.8 K/mm3 (1.2-5.4); Lymphocytes % (Auto) 18.6 % (13.4-35.0); Mean Corpuscular HGB Conc 33 % (30-34); Mean Corpuscular Volume 102 fl (79-97); Monocytes # (Auto) 0.6 K/mm3 (0.0-0.8); Monocytes % (Auto) 6.4 % (0.0-7.3); Platelet Count 257 K/mm3 (140-440); Red Blood Count 3.14 M/mm3 (3.65-5.03); Red Cell Distribution Width 16.7 % (13.2-15.2)
[2020-12-26 03:07] LABS: Bacteria,Urine 2+ /HPF (Negative); Bilirubin,Urine NEG (Negative); Blood,Urine LG (Negative); Color,Urine Red (Yellow); Urobilinogen,Urine < 2.0 mg/dL (<2.0)
[2020-12-26 03:16] LABS: Protein,Urine >500 mg/dL (Negative); RBC,Urine > 182.0 /HPF (0.0-6.0); WBC,Urine > 182.0 /HPF (0.0-6.0)
== END 2020-12-26 08:30 | disposition left against medical advice (07) ==
LOC: ED 23:52
DX: R11.10 Vomiting, unspecified (principal); R30.9 Painful micturition, unspecified; Z53.21 Procedure and treatment not carried out due to patient leaving prior to being seen by health care provider
CPT/HCPCS: 36415; 80048; 81001; 84703; 85025